=== PATIENT | female | born 1990 | race Caucasian/White ===

== ENCOUNTER 2016-11-17 15:11 | Emergency (ER) | payer MEDICAID, OTHER ==
[~2016-11-17] VITALS: Ht 154.9 cm; Wt 118.8 kg
[2016-11-17 16:10] VITALS: BP 159/99
== END 2016-11-17 16:35 | disposition home or self-care (01) ==
LOC: ED 15:11
DX: S67.01XA Crushing injury of right thumb, initial encounter (principal); R03.0 Elevated blood-pressure reading, without diagnosis of hypertension; W23.0XXA Caught, crushed, jammed, or pinched between moving objects, initial encounter; Y93.89 Activity, other specified; Y92.810 Car as the place of occurrence of the external cause; Y99.8 Other external cause status

== ENCOUNTER 2016-11-19 11:02 | Emergency (ER) | payer MEDICAID, OTHER ==
[~2016-11-19] VITALS: Ht 154.9 cm; Wt 117.9 kg
[2016-11-19 11:04] VITALS: BP 153/107
== END 2016-11-19 12:57 | disposition home or self-care (01) ==
LOC: ED 11:02
DX: S60.011A Contusion of right thumb without damage to nail, initial encounter (principal); Z79.899 Other long term (current) drug therapy; W23.1XXA Caught, crushed, jammed, or pinched between stationary objects, initial encounter; Y93.89 Activity, other specified; Y99.8 Other external cause status; Y92.89 Other specified places as the place of occurrence of the external cause

== ENCOUNTER 2016-11-25 04:18 | Emergency (ER) | payer MEDICAID, OTHER ==
[2016-11-25 06:05] VITALS: BP 146/83
== END 2016-11-25 06:05 | disposition home or self-care (01) ==
LOC: ED 04:18
DX: S60.111A Contusion of right thumb with damage to nail, initial encounter (principal); X58.XXXA Exposure to other specified factors, initial encounter; Y93.89 Activity, other specified; Y99.8 Other external cause status; Y92.89 Other specified places as the place of occurrence of the external cause
CPT/HCPCS: J3490